=== PATIENT | female | born 1955 | race African-American/Black ===

== ENCOUNTER 2018-02-09 19:22 | Observation (INO) | payer MEDICARE, OTHER ==
[~2018-02-09] VITALS: Ht 170.2 cm; Wt 64.0 kg
[~2018-02-09 19:22] MED LIST: ASPI81TA45 PO; LISI-366 PO
[2018-02-09 19:28] VITALS: BP 229/103; PULSE 91; RESP 18; TEMP 97.9; O2SAT 99
[2018-02-09 19:59] VITALS: BP_SYST 203; BP_SYST 220; BP_DIAS 91; BP_DIAS 95; PULSE 84
[2018-02-09] MEDS ORDERED: ASPI81CH6 CHEW (19:59)
[2018-02-09] MEDS ORDERED: HYDR-3801 PO (19:59)
[2018-02-09] MEDS ORDERED: ATOR40TA16 PO (19:59)
[2018-02-09] MEDS ORDERED: AMLO5TAB2 PO (19:59)
--- NOTE | 2018-02-09 20:14 | PD ---
HPI Chief Complaint: Hypertension Time Seen by Provider: 19:48 Travel History International Travel<30 days: No Contact w/Intl Traveler<30days: No Traveled to known affect area: No History of Present Illness HPI 63-year-old female with history of hypertension, presents here today with complaints of feeling jittery. Patient states that she was easily started on blood pressure medications. She states that she has been doing well however today she just did not feel right. She denies any head pain. She denies any chest pain, chest pressure. She denies any nausea vomiting diarrhea. She states that she felt "jittery". Blood pressure was over 200s systolic in the triage area. The patient states that she thinks she has been taking her medications as prescribed but then again thought that it is possible she may have missed a dose or 2. There are no other complaints at the time of my examination. PFSH Past Medical History Diminished Hearing: No Hypertension: Yes Immunizations Current: Yes Past Surgical History Surgical History: No Previous Surgery Social History Alcohol Use: Yes Tobacco Use: Yes Substance Use: No Allergies-Medications (Allergen,Severity, Reaction): Coded Allergies: No Known Allergies (Unverified Allergy, Unknown, 02/09/18) Reported Meds & Prescriptions Reported Meds & Active Scripts Active Reported Hydralazine (Hydralazine HCl) 100 Mg Tab 25 Mg PO BID Take with meals Aspirin Low Dose (Aspirin) 81 Mg Chew 81 Mg CHEW DAILY Amlodipine (Amlodipine Besylate) 5 Mg Tab 5 Mg PO DAILY Atorvastatin (Atorvastatin Calcium) 40 Mg Tab 40 Mg PO HS Review of Systems Except as stated in HPI: all other systems reviewed are Neg General / Constitutional: No: Fever Eyes: No: Blurred Vision HENT: No: Headaches, Neck Pain Cardiovascular: No: Chest Pain or Discomfort, Palpitations Respiratory: No: Cough, Shortness of Breath Gastrointestinal: No: Nausea, Vomiting, Abdominal Pain Genitourinary: No: Dysuria Musculoskeletal: No: Weakness, Pain Neurologic: Positive: Other (Patient reports feeling "jittery".), No: Weakness , Dizziness, Syncope, Headache, Paresthesia Physical Exam Narrative GENERAL: Well-developed well-nourished female in no acute respiratory distress. SKIN: Focused skin assessment warm/dry. HEAD: Atraumatic. Normocephalic. EYES: No scleral icterus. No injection or drainage. ENT: No nasal bleeding or discharge. Mucous membranes pink and moist. NECK: Trachea midline. Supple. CARDIOVASCULAR: Regular rate and rhythm. No murmur appreciated. RESPIRATORY: No accessory muscle use. Clear to auscultation. Breath sounds equal bilaterally. GASTROINTESTINAL: Abdomen soft, non-tender, nondistended. Hepatic and splenic margins not palpable. MUSCULOSKELETAL: No obvious deformities. No clubbing. No cyanosis. No edema. NEUROLOGICAL: Awake and alert. No obvious cranial nerve deficits. Motor grossly within normal limits. Normal speech. PSYCHIATRIC: Appropriate mood and affect; insight and judgment normal. Data Data Last Documented VS Vital Signs Date Time Temp Pulse Resp B/P (MAP) Pulse Ox O2 Delivery O2 Flow Rate FiO2 02/09/18 21:00 80 16 181/84 (116) 99 Room Air 02/09/18 19:28 97.9 Orders Orders Electrocardiogram (02/09/18 ) Complete Blood Count With Diff (02/09/18 20:09) Basic Metabolic Panel (Bmp) (02/09/18 20:09) Ckmb (Isoenzyme) Profile (02/09/18 20:09) Troponin I (02/09/18 20:09) Iv Access Insert/Monitor (02/09/18 20:09) Ecg Monitoring (02/09/18 20:09) Oximetry (02/09/18 20:09) Hydralazine Inj (Apresoline Inj) (02/09/18 20:15) Metoprolol Tartrate (Lopressor) (02/09/18 22:45) Metoprolol Tartrate (Lopressor) (02/10/18 09:00) Place In Observation (02/09/18 ) Vital Signs (Adult) Q4H (02/09/18 22:36) Activity Oob Ad Slime (02/09/18 22:36) Hydrography Teacher / Telemetry .CONTINUOUS (02/09/18 22:36) Intake + Output RICHARD.QSHIFT (02/09/18 22:36) Diet Heart Healthy (02/10/18 Breakfast) Sodium Chloride 0.9% Flush (Ns Flush) (02/09/18 22:45) Sodium Chloride 0.9% Flush (Ns Flush) (02/10/18 09:00) Ondansetron Inj (Zofran Inj) (02/09/18 22:45) Comprehensive Metabolic Panel (02/10/18 06:00) Complete Blood Count With Diff (02/10/18 06:00) Troponin I (02/10/18 00:00) Troponin I (02/10/18 06:00) Chest, Single Ap (02/09/18 22:36) Case Management Consult (02/09/18 22:36) Scd Bilateral/Knee High RICHARD.BID (02/09/18 22:36) Jarek Bilateral/Knee High RICHARD.QSHIFT (02/09/18 22:38) Acetaminophen (Tylenol) (02/09/18 22:45) Acetamin-Hydrocod 325-5 Mg ([place] 5-325 (02/09/18 22:45) Morphine Inj (Morphine Inj) (02/09/18 22:45) Docusate Sodium-Senna (Leslie-Colace) (02/10/18 09:00) Magnesium Hydroxide Liq (Milk Of Magnesi (02/09/18 22:45) Sennosides (Senokot) (02/09/18 22:45) Bisacodyl Supp (Dulcolax Supp) (02/09/18 22:45) Lactulose Liq (Lactulose Liq) (02/09/18 22:45) Aspirin Chew (Aspirin Chew) (02/10/18 09:00) Atorvastatin (Lipitor) (02/10/18 21:00) Hydralazine (Apresoline) (02/10/18 06:00) Admit Order (Ed Use Only) (02/09/18 23:11) Hydralazine Inj (Apresoline Inj) (02/09/18 23:15) Labs Laboratory Tests Test 02/09/18 20:25 White Blood Count 5.1 TH/MM3 Red Blood Count 4.45 MIL/MM3 Hemoglobin 12.0 GM/DL Hematocrit 36.8 % Mean Corpuscular Volume 82.7 FL Mean Corpuscular Hemoglobin 27.0 PG Mean Corpuscular Hemoglobin Concent 32.6 % Red Cell Distribution Width 14.4 % Platelet Count 278 TH/MM3 Mean Platelet Volume 8.1 FL Neutrophils (%) (Auto) 49.1 % Lymphocytes (%) (Auto) 40.0 % Monocytes (%) (Auto) 9.2 % Eosinophils (%) (Auto) 0.9 % Basophils (%) (Auto) 0.8 % Neutrophils # (Auto) 2.5 TH/MM3 Lymphocytes # (Auto) 2.1 TH/MM3 Monocytes # (Auto) 0.5 TH/MM3 Eosinophils # (Auto) 0.0 TH/MM3 Basophils # (Auto) 0.0 TH/MM3 CBC Comment DIFF FINAL Differential Comment Blood Urea Nitrogen 15 MG/DL Creatinine 0.68 MG/DL Random Glucose 165 MG/DL Calcium Level 10.0 MG/DL Sodium Level 141 MEQ/L Potassium Level 3.6 MEQ/L Chloride Level 106 MEQ/L Carbon Dioxide Level 26.2 MEQ/L Anion Gap 9 MEQ/L Estimat Glomerular Filtration Rate 105 ML/MIN Total Creatine Kinase 83 U/L Troponin I LESS THAN 0.02 NG/ML MDM Medical Decision Making Medical Screen Exam Complete: Yes Emergency Medical Condition: Yes Differential Diagnosis ACS versus hypertensive urgency versus metabolic derangement Narrative Course [age]old female with history of hypertension, presents here with complaints of feeling "jittery". Patient states that she has been taking her blood pressure medicines as prescribed. She then says that she possibly could have missed some of her blood pressure medicines but does not think so. EKG shows strain pattern in the lateral leads. There is no acute ST elevation noted. Cardiac enzymes are within normal limits. The patient was given 10 mg of IV hydralazine which brought her blood pressure into the 160s over 70s. It is now starting to creep back up again and she is now states that she is feeling jittery again she denies any head pain. She denies any chest pain. She is given a further 10 mg of IV hydralazine. She will be admitted under observation for IV blood pressure control. [facility]. Diagnosis Primary Impression: Hypertensive urgency Admitting Information Admitting Physician Requests: Observation Nico Sanchez MD Feb 09, 2018 20:14
[2018-02-09] MEDS ORDERED: hydrALAZINE HCL 20 MG/ML VIAL IV PUSH ONE ×2 (20:15→23:15)
[2018-02-09 20:43] LABS: AUTOMATED NEUTROPHIL # 2.5 TH/MM3 (1.8-7.7); BASOPHIL % 0.8 % (0.0-2.0); EOSINOPHIL % 0.9 % (0.0-4.0); HEMATOCRIT 36.8 % (35.0-46.0); LYMPHOCYTE # 2.1 TH/MM3 (1.0-4.8); MEAN CELL VOLUME 82.7 FL (80.0-100.0); MEAN CORPUSCULAR HGB CONC 32.6 % (32.0-36.0); MEAN PLATELET VOLUME 8.1 FL (7.0-11.0); MONO % 9.2 % (0.0-8.0); MONOCYTE # 0.5 TH/MM3 (0-0.9); NEUT % 49.1 % (16.0-70.0); PLATELET COUNT 278 TH/MM3 (150-450); RED BLOOD COUNT 4.45 MIL/MM3 (4.00-5.30); RED CELL DISTRIBUTION WIDTH 14.4 % (11.6-17.2); WHITE BLOOD COUNT 5.1 TH/MM3 (4.0-11.0)
[2018-02-09 20:45] VITALS: BP 159/75; PULSE 74; RESP 16; O2SAT 99
[2018-02-09 20:56] LABS: BICARBONATE 26.2 MEQ/L (21.0-32.0); BLOOD UREA NITROGEN 15 MG/DL (7-18); CHLORIDE 106 MEQ/L (98-107); CREATININE 0.68 MG/DL (0.50-1.00); GLOMERULAR FILTRATION RATE 105 ML/MIN (>89); GLUCOSE,RANDOM 165 MG/DL (74-106); SODIUM (NA) 141 MEQ/L (136-145)
[2018-02-09 21:00] VITALS: BP 181/84; PULSE 80; RESP 16; O2SAT 99
[2018-02-09 21:00] LABS: TROPONIN I LESS THAN 0.02 NG/ML (0.02-0.05)
--- NOTE | 2018-02-09 22:40 | HHI.HP ---
[facility] Primary [facility] Physician No Primary Care Physician Admission Diagnosis Diagnoses: (1) HTN (hypertension) Diagnosis: Principal (2) Chest pain Diagnosis: Principal (3) Neck pain Diagnosis: Principal (4) Tobacco abuse Diagnosis: Principal Travel History International Travel<30 Days: No Contact w/Intl Traveler <30 Da: No Traveled to Known Affected Are: No History of Present Illness This is a 63-year-old female with a PMH of HTN and Tobacco Abuse who presented to the ER with complaints of right shoulder "tightness" and "feeling funny" since earlier this evening. Denies discrete chest pain, but notes some chest pressure, moderate severity, intermittent. Denies injury/trauma to shoulder, no motor weakness reported. On arrival, BP 229/103, HR 91, O2 sat 99% on RA, Afebrile. s/p Hydralazine IV in the ER with temporary improvement, however recurrent episode of HTN with BP 181/84, HR 80. Reports no recent changes to medications, however believe she may have missed a few doses of her medications recently. Review of Systems Except as stated in HPI: all other systems reviewed are Neg ROS: 14 point review of systems otherwise negative. Past Family Social History Past Medical History PMH: HTN and Tobacco Abuse Past Surgical History PAST SURGICAL HISTORY: None Allergies: Coded Allergies: No Known Allergies (Unverified Allergy, Unknown, 02/09/18) Family History PAST FAMILY HISTORY: Reviewed. No h/o DM or CAD Social History PAST SOCIAL HISTORY: Positive for alcohol and tobacco. Negative for drugs. Physical Exam Vital Signs Vital Signs Date Time Temp Pulse Resp B/P (MAP) Pulse Ox O2 Delivery O2 Flow Rate FiO2 02/09/18 21:00 80 16 181/84 (116) 99 Room Air 02/09/18 20:45 74 16 159/75 (103) 99 Room Air 02/09/18 19:59 84 220/95 (136) 203/91 (128) 02/09/18 19:28 97.9 91 18 229/103 (145) 99 Room Air Physical Exam PE: GENERAL: Pleasant middle-aged black female in no acute distress. HEENT: PERRLA, EOMI. No scleral icterus or conjunctival pallor. No lid lag or facial droop. CARDIOVASCULAR: Regular rate and rhythm. No obvious murmurs to auscultation. No chest tenderness to palpation. RESPIRATORY: No obvious rhonchi or wheezing. Clear to auscultation. Breath sounds equal bilaterally. GASTROINTESTINAL: Abdomen soft, non-tender, nondistended. BS normal. MUSCULOSKELETAL: Extremities without clubbing, cyanosis, or edema. No obvious deformities. NEUROLOGICAL: Awake, alert and oriented x4. No focal neurologic deficits. Moving both upper and lower extremities spontaneously. Laboratory Laboratory Tests Test 02/09/18 20:25 White Blood Count 5.1 Red Blood Count 4.45 Hemoglobin 12.0 Hematocrit 36.8 Mean Corpuscular Volume 82.7 Mean Corpuscular Hemoglobin 27.0 Mean Corpuscular Hemoglobin Concent 32.6 Red Cell Distribution Width 14.4 Platelet Count 278 Mean Platelet Volume 8.1 Neutrophils (%) (Auto) 49.1 Lymphocytes (%) (Auto) 40.0 Monocytes (%) (Auto) 9.2 Eosinophils (%) (Auto) 0.9 Basophils (%) (Auto) 0.8 Neutrophils # (Auto) 2.5 Lymphocytes # (Auto) 2.1 Monocytes # (Auto) 0.5 Eosinophils # (Auto) 0.0 Basophils # (Auto) 0.0 CBC Comment DIFF FINAL Differential Comment Blood Urea Nitrogen 15 Creatinine 0.68 Random Glucose 165 Calcium Level 10.0 Sodium Level 141 Potassium Level 3.6 Chloride Level 106 Carbon Dioxide Level 26.2 Anion Gap 9 Estimat Glomerular Filtration Rate 105 Total Creatine Kinase 83 Troponin I LESS THAN 0.02 Result Diagram: 02/09/18202402/09/182024 Caprini VTE Risk Assessment Caprini VTE Risk Assessment: No/Low Risk (score <= 1) Caprini Risk Assessment Model Point Value = 1 Point Value = 2 Point Value = 3 Point Value = 5 Age 41-60 Minor surgery BMI > 25 kg/m2 Swollen legs Varicose veins or History of unexplained or recurrent spontaneous Oral contraceptives or hormone replacement Sepsis (< 1 month) Serious lung disease, including pneumonia (< 1 month) Abnormal pulmonary function Acute myocardial infarction Congestive heart failure (< 1 month) History of inflammatory bowel disease Medical patient at bed rest Age 61-74 Arthroscopic surgery Major open surgery (> 45 min) Laparoscopic surgery (> 45 min) Malignancy Confined to bed (> 72 hours) Immobilizing plaster cast Central venous access Age >= 75 History of VTE Family history of VTE Factor V Leiden Prothrombin [id number] Lupus anticoagulant Anticardiolipin antibodies Elevated serum homocysteine Heparin-induced thrombocytopenia Other congenital or acquired thrombophilia Stroke (< 1 month) Elective arthroplasty Hip, pelvis, or leg fracture Acute spinal cord injury (< 1 month) Prophylaxis Regimen Total Risk Factor Score Risk Level Prophylaxis Regimen 0-1 Low Early ambulation 2 Moderate Order ONE of the following: *Sequential Compression Device (SCD) *Heparin 5000 units SQ BID 3-4 Higher Order ONE of the following medications: *Heparin 5000 units SQ TID *Enoxaparin/Lovenox 40 mg SQ daily (WT < 150 kg, CrCl > 30 mL/min) *Enoxaparin/Lovenox 30 mg SQ daily (WT < 150 kg, CrCl > 10-29 mL/min) *Enoxaparin/Lovenox 30 mg SQ BID (WT < 150 kg, CrCl > 30 mL/min) AND/OR *Sequential Compression Device (SCD) 5 or more Highest Order ONE of the following medications: *Heparin 5000 units SQ TID (Preferred with Epidurals) *Enoxaparin/Lovenox 40 mg SQ daily (WT < 150 kg, CrCl > 30 mL/min) *Enoxaparin/Lovenox 30 mg SQ daily (WT < 150 kg, CrCl > 10-29 mL/min) *Enoxaparin/Lovenox 30 mg SQ BID (WT < 150 kg, CrCl > 30 mL/min) AND *Sequential Compression Device (SCD) Assessment and Plan Problem List: (1) HTN (hypertension) ICD Code: I10 - Essential (primary) hypertension (2) Chest pain ICD Code: R07.9 - Chest pain, unspecified (3) Neck pain ICD Code: M54.2 - Cervicalgia (4) Tobacco abuse ICD Code: Z72.0 - Tobacco use Status: Acute Assessment and Plan A/P: 1. HTN: Uncontrolled. BP 229/103, HR 91 on arrival, s/p Hydralazine IV w/ transient improvement in BP, now w/ recurrent hypertension. Start Metoprolol, resume home medications, monitor BP closely. 2. Chest Pain: reports chest tightness rather than pain. Initial trop negative. Admit for Obs, telemetry, check serial cardiac enzymes. Start ASA, Statin, B-Pepper. 3. Shoulder Pain: reports muscle strain, no decreased ROM or injury. Flexeril prn, analgesics as needed. 4. Tobacco Abuse: Pt counselled. Ativan prn. No NicoDerm to avoid vasoconstriction. 5. DVT Prophylaxis: SCD/Teds. 6. Social work for d/c planning as needed. 7. Case discussed w/ ER physician at length, labs/records/imaging reviewed by me. Chaya Swann MD Feb 09, 2018 22:40
[2018-02-09] MEDS ORDERED: SODIUM CHLORIDE 0.9% FLUSH 10 ML FLUSH IV FLUSH PRN (22:45)
[2018-02-09] MEDS ORDERED: SENNOSIDES 8.6 MG TAB PO PRN (22:45)
[2018-02-09] MEDS ORDERED: ACETAMINOPHEN 325 MG TAB PO PRN (22:45)
[2018-02-09] MEDS ORDERED: LACTULOSE SYRUP 20 GM/30 ML CUP PO PRN (22:45)
[2018-02-09] MEDS ORDERED: ONDANSETRON HCL 4 MG/2 ML VIAL IVP PRN (22:45)
[2018-02-09] MEDS ORDERED: MORPHINE SULFATE 2 MG/ML INJ IV PUSH PRN (22:45)
[2018-02-09] MEDS ORDERED: ACETAMINOPHEN/HYDROcodone 325 MG/5 MG TAB PO PRN (22:45)
[2018-02-09] MEDS ORDERED: MAGNESIUM HYDROXIDE SUSP 30 ML CUP PO PRN (22:45)
[2018-02-09] MEDS ORDERED: BISACODYL 10 MG SUPP RECTAL PRN (22:45)
[2018-02-09] MEDS ORDERED: METOPROLOL TARTRATE 50 MG TAB PO ONE (22:45)
--- NOTE | 2018-02-09 23:19 | RADRPT ---
EXAM DATE/TIME: 02/09/2018 22:52 [facility] COMPARISON: No previous studies available for comparison. INDICATIONS : Right arm tightness. MEDICAL HISTORY : None. SURGICAL HISTORY : None. ENCOUNTER: Initial ACUITY: 1 day PAIN SCORE: 0/10 LOCATION: Bilateral chest FINDINGS: A single view of the chest demonstrates the lungs to be symmetrically aerated without evidence of mas s, infiltrate or effusion. There is prominence of the paratracheal region bilaterally. The cardiomed iastinal contours are unremarkable. Osseous structures are intact. CONCLUSION: 1. No infiltrate. 2. Prominence in the paratracheal region bilaterally likely ectatic vasculature. Outpatient CT chest recommended. Kunal Ramsey MD on February 09, 2018 at 23:17 Board Certified Radiologist. This report was verified electronically.
[2018-02-09] MEDS ORDERED: CYCLOBENZAPRINE HCL 10 MG TAB PO PRN (23:45)
[2018-02-09 23:50] VITALS: BP 171/65; PULSE 75; RESP 16; O2SAT 99
[2018-02-10 01:58] VITALS: BP 182/77; PULSE 67; RESP 18; TEMP 98; O2SAT 98
[2018-02-10 05:35] LABS: ALBUMIN 3.4 GM/DL (3.4-5.0); AST (GOT) 14 U/L (15-37); BICARBONATE 26.3 MEQ/L (21.0-32.0); BLOOD UREA NITROGEN 12 MG/DL (7-18); CALCIUM 9.9 MG/DL (8.5-10.1); CHLORIDE 107 MEQ/L (98-107); GLOMERULAR FILTRATION RATE 121 ML/MIN (>89); GLUCOSE,RANDOM 93 MG/DL (74-106); SODIUM (NA) 141 MEQ/L (136-145)
[2018-02-10 05:43] LABS: ALKALINE PHOSPHATASE 97 U/L (45-117); ALT (GPT) 15 U/L (10-53); TOTAL BILIRUBIN ADULT 0.5 MG/DL (0.2-1.0); TOTAL PROTEIN 7.1 GM/DL (6.4-8.2); TROPONIN I LESS THAN 0.02 NG/ML (0.02-0.05)
[2018-02-10] MEDS: hydrALAZINE HCL 50 MG TAB PO SCH ×2 (05:57→15:21)
[2018-02-10 05:58] LABS: AUTOMATED NEUTROPHIL # 1.8 TH/MM3 (1.8-7.7); BASOPHIL % 0.7 % (0.0-2.0); EOSINOPHIL % 0.8 % (0.0-4.0); HEMATOCRIT 36.7 % (35.0-46.0); LYMPH % 56.1 % (9.0-44.0); LYMPHOCYTE # 2.8 TH/MM3 (1.0-4.8); MEAN CELL VOLUME 82.4 FL (80.0-100.0); MEAN CORPUSCULAR HGB CONC 32.8 % (32.0-36.0); MEAN PLATELET VOLUME 8.4 FL (7.0-11.0); MONO % 7.5 % (0.0-8.0); MONOCYTE # 0.4 TH/MM3 (0-0.9); NEUT % 34.9 % (16.0-70.0); PLATELET COUNT 284 TH/MM3 (150-450); RED BLOOD COUNT 4.45 MIL/MM3 (4.00-5.30); RED CELL DISTRIBUTION WIDTH 14.4 % (11.6-17.2); WHITE BLOOD COUNT 5.1 TH/MM3 (4.0-11.0)
[2018-02-10 07:16] VITALS: BP 144/67; PULSE 63; RESP 16; TEMP 97.9; O2SAT 98
[2018-02-10] MEDS ORDERED: METOPROLOL TARTRATE 25 MG TAB PO SCH (09:00)
[2018-02-10] MEDS ORDERED: DOCUSATE SODIUM 50 MG/SENNA 8.6 MG TAB PO SCH (09:00)
[2018-02-10] MEDS ORDERED: ASPIRIN 81 MG CHEW TAB CHEW SCH (09:00)
[2018-02-10] MEDS ORDERED: SODIUM CHLORIDE 0.9% FLUSH 10 ML FLUSH IV FLUSH SCH (09:00)
[2018-02-10] MEDS ORDERED: LISINOPRIL 20 MG TAB PO SCH (11:00)
[2018-02-10 11:05] VITALS: PULSE 58
--- NOTE | 2018-02-10 11:12 | MB ---
cc: Enmanuel Kenny MD DATE: 02/10/2018 DATE OF CONSULTATION: 02/10/2018 INDICATION: Arm pain. HISTORY OF PRESENT ILLNESS: This is a 63-year-old female with history of hypertension, who presented to the emergency department secondary to elevated blood pressure and arm pain. The patient states she was doing fairly well up until yesterday when she noticed that she became rather jittery. She checked her blood pressure and apparently it was significantly elevated. She takes hydralazine and Norvasc at home. 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 She states that she may have missed a dose or two of medications, but she is not entirely sure. When she presented to the emergency department her systolic blood pressure was 220 mmHg. She denies any lv chest pain, but does report right arm pain. No nausea, vomiting, diaphoresis or shortness of breath. Initial 2 troponins were negative. Electrocardiogram does show some ST depression in the anterolateral leads, but on initial EKG. No followup EKG was done. PAST MEDICAL HISTORY: Hypertension. SOCIAL HISTORY: Occasional alcohol use, occasional tobacco use. ALLERGIES: NO KNOWN DRUG ALLERGIES. REPORTED MEDICATIONS: Hydralazine 25 mg b.i.d., aspirin 81 mg a day, atorvastatin 40 mg a day, amlodipine 5 mg a day. REVIEW OF SYSTEMS: A 12-point review of system was performed, negative unless otherwise noted in the history of present illness. PHYSICAL EXAMINATION: VITAL SIGNS: Temperature 97, pulse 63, blood pressure 144/67 mmHg. GENERAL: Alert, oriented x 3, in no acute distress. HEENT: Shows pupils are reactive to light and accommodation. Extraocular movements are intact. NECK: No elevation in jugular venous distention. No thyromegaly. No lymphadenopathy. No carotid bruits. LUNGS: Clear to auscultation bilaterally. ABDOMEN: Nontender, nondistended with good bowel sounds. No hepatosplenomegaly. EXTREMITIES: Show no clubbing, cyanosis or edema. Good peripheral pulses. NEUROLOGIC: Cranial nerves intact. Motor and sensory grossly intact. LABORATORY DATA: WBC 5.1, hemoglobin is 12.0, platelet count is 284. Sodium 141, potassium 3.8, BUN is 12, creatinine 0.60. Troponins negative x 2. ELECTROCARDIOGRAM: Sinus rhythm, LVH, ST depression anterolaterally. ASSESSMENT: 1. Atypical chest pain/arm pain. 2. Abnormal electrocardiogram. 3. Hypertension. PLAN: The patient actually never had lv symptoms of chest pain, although right arm pain may be her anginal equivalent in the setting of severe hypertension. I am not sure what her blood pressure runs at home, but she also reports some noncompliance. Her hydralazine is dosed twice daily, which is not going to be adequate coverage for her. Her laboratory studies showed normal renal function. She is borderline bradycardic with heart rates in the 60s. We will start by initiating angiotensin converting enzyme inhibitor with p.r.n. hydralazine dosing. We will continue amlodipine. I would discontinue her hydralazine on a regular basis and use it only as a p.r.n. for systolic greater than 160 mmHg when discharged. Could consider low-dose carvedilol and monitor heart rate if her blood pressure is still not well controlled. The patient did eat breakfast this morning, but does not report any caffeine use. We will repeat electrocardiogram. We will order for a Lexiscan. If that is negative and blood pressure looks better controlled, she can be discharged with routine followup. Enmanuel Kenny MD GABRIEL/TL , 10:43 AM , 11:11 AM
[2018-02-10 11:34] VITALS: BP 134/63; PULSE 62; RESP 16; TEMP 98.3; O2SAT 96
--- NOTE | 2018-02-10 12:19 | HHI.PR ---
Subjective Remarks Patient seen this morning around 9 AM. Says she is feeling all right. Reports that chest discomfort has improved. Objective Vital Signs Date Time Temp Pulse Resp B/P (MAP) Pulse Ox O2 Delivery O2 Flow Rate FiO2 02/10/18 11:34 98.3 62 16 134/63 (86) 96 02/10/18 07:16 97.9 63 16 144/67 (92) 98 02/10/18 01:58 98.0 67 18 182/77 (112) 98 02/09/18 23:50 75 16 171/65 (100) 99 Room Air 02/09/18 21:00 80 16 181/84 (116) 99 Room Air 02/09/18 20:45 74 16 159/75 (103) 99 Room Air 02/09/18 19:59 84 220/95 (136) 203/91 (128) 02/09/18 19:28 97.9 91 18 229/103 (145) 99 Room Air Result Diagram: 02/10/18 0440 02/10/18 0440 Objective Remarks GENERAL: Patient sitting up in bed. Appears comfortable. Alert and oriented 3. SKIN: Warm and dry. HEAD: Normocephalic. EYES: No scleral icterus. No injection or drainage. NECK: Supple, trachea midline. No JVD. CARDIOVASCULAR: Regular rate and rhythm without murmurs, gallops, or rubs. RESPIRATORY: Breath sounds equal bilaterally. No accessory muscle use. GASTROINTESTINAL: Abdomen soft, non-tender, nondistended. MUSCULOSKELETAL: No cyanosis, or edema. BACK: Nontender without obvious deformity. No CVA tenderness. A/P Assessment and Plan // HTN: Uncontrolled. BP 229/103, HR 91 on arrival, s/p Hydralazine IV w/ transient improvement in BP, now w/ recurrent hypertension. Start Metoprolol, resume home medications, monitor BP closely. = Blood pressure is much improved on current regimen. Will continue. Continue to monitor // Chest Pain: reports chest tightness rather than pain. Initial trop negative. Admit for Obs, telemetry, check serial cardiac enzymes. Start ASA, Statin, B-Pepper. = Continue current medication regimen. = Due to ST depressions on admission, consult cardiology. Myocardial perfusion scan this afternoon. Appreciate assistance / Shoulder Pain: reports muscle strain, no decreased ROM or injury. Flexeril prn, analgesics as needed. Improving. Continue to monitor //Tobacco Abuse: Pt counselled. Ativan prn. No NicoDerm to avoid vasoconstriction. //DVT Prophylaxis: SCD/Teds. Discharge Planning Pending Rajaniscan, cardiology clearance. Sacha Villalobos MD Feb 10, 2018 12:19
[2018-02-10] MEDS ORDERED: REGADENOSON INJ 0.4 MG/5 ML SYR ONE (14:14)
[2018-02-10 15:16] VITALS: BP 154/67; PULSE 73; RESP 16; TEMP 98.2; O2SAT 97
--- NOTE | 2018-02-10 15:55 | RADRPT ---
EXAM DATE/TIME: 02/10/2018 14:00 [facility] COMPARISON: No previous studies available for comparison. INDICATIONS : Chest pain. Abnormal EKG. DOSE: 25.4 mCi Tc99m Myoview at stress. 8.6 mCi Tc99m Myoview at rest. 0.4 mg Lexiscan STRESS SYMPTOMS: Lightheaded, stomach pressure and dyspnea. EJECTION FRACTION: 69% MEDICAL HISTORY : Hypertension. SURGICAL HISTORY : None. ENCOUNTER: Initial ACUITY: 1 day PAIN SCALE: 0/10 LOCATION: Left chest TECHNIQUE: The patient underwent pharmacologic stress with infusion of prescribed dose. Continuous ECG tracing was monitored during stress. Gated SPECT imaging was performed after stress and conventional SPECT i maging was performed at rest. The examination was performed on a SPECT/CT scanner, both attenuation and non-corrected datasets were reviewed. FINDINGS: DISTRIBUTION: The maximum perfused segment at stress is in the posterior basal wall. PERFUSION STUDY: The pattern of perfusion at stress is within normal limits. GATED STUDY: There is intact wall motion and thickening without hypokinetic or dyskinetic segments. CONCLUSION: Normal examination. RISK CATEGORY: Low (<1% Annual Mortality Rate) Julien Lees MD on February 10, 2018 at 15:51 Board Certified Radiologist. This report was verified electronically.
[2018-02-10] MEDS ORDERED: ATORVASTATIN 40 MG TAB PO SCH (21:00)
--- NOTE | 2018-02-11 00:05 | EKG ---
Date Performed: 02/10/2018 Time Performed: 09:39:03 PTAGE: 63 years EKG: SINUS BRADYCARDIA LEFT VENTRICULAR HYPERTROPHY AND ST-T CHANGE ABNORMAL ECG PREVIOUS TRACING : 02/09/2018 19.42 DOCTOR: Jaylene Lui Interpretating Date/Time 02/11/2018 00:00:15
--- NOTE | 2018-02-11 00:22 | EKG ---
Date Performed: 02/09/2018 Time Performed: 19:42:13 PTAGE: 63 years EKG: Sinus rhythm LEFT VENTRICULAR HYPERTROPHY AND ST-T CHANGE ABNORMAL ECG NO PREVIOUS TRACING DOCTOR: Jaylene Lui Interpretating Date/Time 02/11/2018 00:11:25
== END 2018-02-10 17:18 | disposition home or self-care (01) ==
LOC: NEPE 19:22 → NEDA 23:13 → NEPFCDU 02-10 00:09
PROVIDERS: ADMIT Internal Medicine; ATTEND Internal Medicine
DX: I11.9 Hypertensive heart disease without heart failure (principal); I16.0 Hypertensive urgency; R07.9 Chest pain, unspecified; M54.2 Cervicalgia; M79.601 Pain in right arm; R00.1 Bradycardia, unspecified; R94.31 Abnormal electrocardiogram [ECG] [EKG]; Z91.19 Patient's noncompliance with other medical treatment and regimen; Z79.899 Other long term (current) drug therapy; Z79.82 Long term (current) use of aspirin
CPT/HCPCS: 71045; 78452; 80048; 80053; 82550; 84484; 85025; 93005; 93017; 96374; 96376; 99285; A9502; G0378; J0360; J2785